=== PATIENT | female | born 1945 | race Caucasian/White ===

== ENCOUNTER 2017-09-01 10:43 | Emergency (ER) | payer MEDICARE, MEDICAID ==
[2017-09-01 11:28] LABS: #Basophils 0.1 thou/uL (0.0-0.2); #Eosinphils 0.2 thou/uL (0.0-0.7); #Lymphocytes 3.6 thou/uL (1.20-3.40); #Monocytes 0.9 thou/uL (0.11-0.59); #Neutrophils 4.7 thou/uL (1.40-6.50); %Eosinophils 1.9 % (0.0-10.0); %Lymphocytes 37.7 % (21.0-51.0); %Monocytes 9.5 % (0.0-10.0); Hematocrit 46.5 % (36.0-47.0); Mean Platelet Volume 7.5 fL (7.4-10.4); White Blood Cell (WBC) Count 9.5 thou/uL (4.8-10.8)
[2017-09-01 11:53] LABS: ALT (SGPT) 68 U/L (8-55); AST (SGOT) 58 U/L (5-34); Alkaline Phosphatase 111 U/L (40-150); Anion Gap 19 mmol/L (10-20); BUN (Urea Nitrogen) 22 mg/dL (9.8-20.1); Bilirubin, Total 0.3 mg/dL (0.2-1.2); Calc. Creatinine Clearance 0 mL/min (70-130); Calcium 9.5 mg/dL (7.8-10.44); Carbon Dioxide 23 mmol/L (23-31); Chloride 104 mmol/L (98-107); Estimated GFR-MDRD 72; Globulin 4.6 g/dL (2.4-3.5); Protein, Total 8.5 g/dL (6.0-8.3)
--- NOTE | 2017-09-01 12:47 | ULT ---
SOFT TISSUE NECK ULTRASOUND: History: swelling Comparison: None. Technique: Targeted sonographic imaging of the region of the right mandible and right parotid gland. Static images are reviewed. FINDINGS: Incidental 1.8 x 0.6 cm lymph node is noted. There is no evidence of a drainable abscess. Better int errogation with post contrast soft tissue neck CT is recommended. IMPRESSION: Enlarged lymph node, nonspecific. Better interrogation with post contrast soft tissue neck CT is rec ommended. POS: [facility]
[2017-09-01 15:01] LABS: Bilirubin Negative (Negative); Blood, Urine Negative (Negative); Glucose, Urine (Dipstick) Negative (Negative); Ketone, Urine Negative (Negative); Nitrite Negative (Negative); Protein, Urine (Dipstick) Negative (Neg-Trace); Urobilinogen 0.2 mg/dL (0.2-1.0)
[2017-09-01 15:11] LABS: Bacteria/HPF None Seen HPF (None Seen); Hyaline Casts/LPF 0-3 HYALINE CAST LPF (0-3 Hyaline); RBC/HPF 0-3 HPF (0-3); Squamous Epithelial 0-3 HPF (0-3); WBC/HPF 0-3 HPF (0-3)
[2017-09-01] MEDS ORDERED: ISOVUE-370 76%-LOCM 1 ML ONE (15:25)
--- NOTE | 2017-09-01 17:12 | CT ---
CT MAXILLOFACIAL WITH CONTRAST: 09/01/2017 HISTORY: A 71-year-old female with progressive swelling of the right side of the face concerning for parot itis. FINDINGS: The initial set of images sent to [facility] did not completely include the right parotid gland, a nd excluded almost the entire left parotid gland. Without rescanning the patient, the imaged data w as reprocessed with a much larger field of view that includes the entire circumference of the head, but excludes the vertex. The bilateral parotid glands are symmetrical in size. There is no evidence of ductal ectasia or harley olithiasis, involving the Stensen ducts or Daniel ducts. The bilateral submandibular glands are al so symmetrical and normal in appearance. There is no fat stranding to indicate edema in the parotid , submandibular, sublingual, stoker installation mechanic, parapharyngeal, upper retropharyngeal, and upper periverteb ral spaces. There is no evidence of abscess or mass. Orbits are clear. There is mucosal thickenin g of the right sphenoid air cell, right frontal sinus, and right anterior ethmoid air cells. There is minimal mucosal thickening at the floor of the right maxillary sinus. Otherwise, the rest of the sinuses are clear. There is soft tissue density material filling much of the right external audito ry canal, and to a greater degree, the left external auditory canal. It is presumed that this repre sents cerumen. There is severe dilatation (ballooning) of the lateral ventricles and third ventricle, slightly grea ter than on the CT of 07/22/2011. There is greater progression of diffuse brain parenchymal volume l oss. The fourth ventricle is mildly dilated. No acute intracranial mass effect. Hyperostosis front albert interna. There is a tiny metallic foreign body imbedded in the anterior aspect of the mandible at midline. T his is probably old. IMPRESSION: 1. No evidence of parotitis or silolithiasis. 2. Severe hydrocephalus, which could represent normal pressure hydrocephalus. 3. Diffuse atrophy of the brain. 4. No acute findings of the face. 5. Tiny old metallic foreign body at midline embedded in the mandible. POS: [facility]
== END 2017-09-01 18:35 | disposition home or self-care (01) ==
LOC: ERS 10:43
DX: K11.20 Sialoadenitis, unspecified (principal); G91.2 (Idiopathic) normal pressure hydrocephalus; E03.9 Hypothyroidism, unspecified; G30.9 Alzheimer's disease, unspecified; F02.80 Dementia in other diseases classified elsewhere, unspecified severity, without behavioral disturbance, psychotic disturbance, mood disturbance, and anxiety; Z86.73 Personal history of transient ischemic attack (TIA), and cerebral infarction without residual deficits; Z79.84 Long term (current) use of oral hypoglycemic drugs; Z79.899 Other long term (current) drug therapy
CPT/HCPCS: 51701; 70487; 76999; 80053; 81003; 82150; 85025; A4353

== ENCOUNTER 2017-09-23 11:02 | Outpatient (CLI) | payer MEDICARE, MEDICAID ==
--- NOTE | 2017-09-23 12:33 | CT ---
CT OF HEAD NONCONTRAST: INDICATION: Hydrocephalus. FINDINGS: There is marked enlargement of the ventricular system with overlying atrophy. No midline shift. No intraventricular hyperdense hemorrhage. There is a layering low-density fluid level of the occipital horn of the right lateral ventricle, nonspecific. Evidence of christiano hole formation of the calvarium bilaterally. IMPRESSION: 1. Redemonstration of hydrocephalus. There is a low-density fluid level of the occipital horn right lateral ventricle. The size of ventricular system has increased from comparison 07/22/11 exam. Corre late clinically. 2. Parenchymal atrophy is present. POS: [facility]
== END 2017-09-23 11:03 | disposition home or self-care (01) ==
LOC: CT 11:02
PROVIDERS: ATTEND Neurological Surgery
DX: G91.2 (Idiopathic) normal pressure hydrocephalus (principal)
CPT/HCPCS: 70450

== ENCOUNTER 2017-12-03 16:55 | Emergency (ER) | payer MEDICARE, MEDICAID ==
--- NOTE | 2017-12-03 18:58 | RAD ---
CHEST ONE VIEW 12/03/17 HISTORY: Needs tube replaced. COMPARISON: 08/23/16. FINDINGS: Portable semiupright chest demonstrates a normal cardiac silhouette. Chronic change in the lung paren chyma, without consolidation or mass. No pneumothorax. Old right rib fractures are noted. IMPRESSION: No acute cardiopulmonary process. POS: [facility]
--- NOTE | 2017-12-03 19:53 | RAD ---
EXAM: ONE VIEW ABDOMEN 12/03/17 HISTORY: PEG tube check. FINDINGS: Contrast administered via the PEG tube and opacifies the stomach and duodenum. IMPRESSION: PEG tube opacifies the stomach and duodenum and is presumed to be in the appropriate position. POS: [facility]
== END 2017-12-03 21:17 | disposition home or self-care (01) ==
LOC: ERS 16:55
DX: Z43.1 Encounter for attention to gastrostomy (principal); G30.9 Alzheimer's disease, unspecified; F02.80 Dementia in other diseases classified elsewhere, unspecified severity, without behavioral disturbance, psychotic disturbance, mood disturbance, and anxiety; E03.9 Hypothyroidism, unspecified; Z86.73 Personal history of transient ischemic attack (TIA), and cerebral infarction without residual deficits
CPT/HCPCS: 43760; 71045; 74018

== ENCOUNTER 2018-02-25 20:10 | Emergency (ER) | payer MEDICARE, MEDICAID ==
--- NOTE | 2018-02-25 22:32 | RAD ---
PORTABLE AP VIEW ABDOMEN: 02/25/18 HISTORY: Evaluate placement of gastrostomy tube. FINDINGS: Small amount of contrast is injected through the patient's gastrostomy tube overlying the left upper quadrant. Small amount of contrast is seen within the stomach. There are no findings to suggest extra vasation of contrast on this exam. Remainder of bowel gas pattern is nonspecific. IMPRESSION: Gastrostomy tube noted in place with small amount of contrast seen in the stomach. POS: [facility]
== END 2018-02-25 23:40 | disposition home or self-care (01) ==
LOC: ERS 20:10
DX: Z43.1 Encounter for attention to gastrostomy (principal); E03.9 Hypothyroidism, unspecified; G30.9 Alzheimer's disease, unspecified; F02.80 Dementia in other diseases classified elsewhere, unspecified severity, without behavioral disturbance, psychotic disturbance, mood disturbance, and anxiety; G40.909 Epilepsy, unspecified, not intractable, without status epilepticus; Z86.73 Personal history of transient ischemic attack (TIA), and cerebral infarction without residual deficits
CPT/HCPCS: 43760; 74018